=== PATIENT | female | born 1985 | race Caucasian/White ===

== ENCOUNTER 2018-02-02 09:10 | Emergency (ER) | payer BC, OTHER ==
[~2018-02-02] VITALS: Ht 157.5 cm; Wt 74.8 kg
[2018-02-02 09:21] VITALS: BP 145/100
[2018-02-02] MEDS ORDERED: ELIQUIS2.5 MG PO (09:23)
[2018-02-02] MEDS ORDERED: ZPAK PO (09:45)
[2018-02-02] MEDS ORDERED: PREDNISONE 20 M20 M1 PO (09:45)
== END 2018-02-02 09:49 | disposition home or self-care (01) ==
LOC: M.ERS 09:10
DX: J06.9 Acute upper respiratory infection, unspecified (principal); G43.909 Migraine, unspecified, not intractable, without status migrainosus; F17.210 Nicotine dependence, cigarettes, uncomplicated

== ENCOUNTER 2018-08-17 18:51 | Emergency (ER) | payer OTHER ==
[~2018-08-17] VITALS: Ht 157.5 cm; Wt 86.2 kg
[~2018-08-17 18:51] MED LIST: ELIQUIS2.5 MG PO; PREDNISONE 20 M20 M1 PO; ZPAK PO
[2018-08-17] MEDS ORDERED: NORCO 5-325 TA1 EACH PO (19:26)
[2018-08-17] MEDS ORDERED: ZOFRAN ODT4 MG PO (19:32)
[2018-08-17 19:39] VITALS: BP 131/85
== END 2018-08-17 19:39 | disposition home or self-care (01) ==
LOC: M.ERS 18:51
DX: S63.501A Unspecified sprain of right wrist, initial encounter (principal); G43.909 Migraine, unspecified, not intractable, without status migrainosus; F17.200 Nicotine dependence, unspecified, uncomplicated; W17.89XA Other fall from one level to another, initial encounter; Y93.02 Activity, running; Y92.89 Other specified places as the place of occurrence of the external cause; Y99.8 Other external cause status

== ENCOUNTER 2020-01-17 12:02 | Emergency (ER) | payer OTHER ==
[~2020-01-17] VITALS: Ht 157.5 cm; Wt 75.8 kg
[~2020-01-17 12:02] MED LIST changes: +NORCO 5-325 TA1 EACH PO; +ZOFRAN ODT4 MG PO
[2020-01-17] MEDS ORDERED: TRAMADOL 50 MG50 MG PO (12:19)
[2020-01-17 12:32] LABS: URINE BILIRUBIN NEGATIVE (Negative); URINE BLOOD NEGATIVE (Negative); URINE CLARITY CLEAR; URINE COLOR YELLOW; URINE GLUCOSE-RANDOM NEGATIVE (Negative); URINE KETONES NEGATIVE (Negative); URINE LEUKOCYTES-REFLEX NEGATIVE (Negative); URINE NITRITE-REFLEX NEGATIVE (Negative); URINE PROTEIN NEGATIVE (Negative); URINE UROBILINOGEN 0.2 E.U./dl (0.2-1.0)
[2020-01-17 12:44] LABS: AMP/METHAMP Negative (Negative); BARBITURATES Negative (Negative); BENZODIAZEPINES Negative (Negative); COCAINE POSITIVE (Negative); METHADONE Negative (Negative); OPIATES Negative (Negative); PCP Negative (Negative); THC POSITIVE (Negative)
[2020-01-17 12:47] LABS: ABSOLUTE BASOPHILS 0.1 thou/uL (0.0-0.2); ABSOLUTE LYMPHOCYTES 1.9 thou/uL (0.8-5.3); ABSOLUTE MONOCYTES 0.4 thou/uL (0.0-1.2); ABSOLUTE NEUTROPHILS 6.5 thou/uL (1.6-8.1); BASOPHILS 0.9 %; EOSINOPHILS 0.4 %; HEMATOCRIT 43.6 % (37.0-47.0); LYMPHOCYTES 21.5 %; MCH 29.6 pg (26.0-34.0); MCHC 34.5 g/dL (28.0-37.0); MCV 85.8 fL (80.0-100.0); MONOCYTES 4.6 %; MPV 9.7 fl. (7.2-11.1); NUCLEATED RBCS 0 /100WBC; PLATELET COUNT* 235 thou/uL (150-400); POLYS 72.6 %; RBC 5.08 mil/uL (4.20-5.00); RDW-CV 13.1 % (10.5-14.5)
[2020-01-17 13:02] LABS: CALCIUM 8.8 mg/dL (8.5-10.1)
[2020-01-17 13:07] LABS: ALBUMIN 3.9 g/dL (3.4-5.0); TOTAL BILIRUBIN 0.5 mg/dL (<0.1-1.0); TOTAL PROTEIN 7.1 g/dL (6.4-8.2)
[2020-01-17] MEDS ORDERED: PHENERGAN 25 MG25 M1 PO (14:36)
[2020-01-17] MEDS ORDERED: PROMS25 WY RECTAL (14:36)
[2020-01-17] MEDS ORDERED: BENTYL 20 MG TA20 M1 PO (16:22)
[2020-01-17 16:52] VITALS: BP 159/94
--- NOTE | 2020-01-18 14:29 | EKG ---
[place] [address] ELECTROCARDIOGRAM REPORT Name: ENRICO CABA Room: [facility]#: [id number] Admission: 01/17/20 Attend Phys: Discharge: 01/17/20 Date of : 87 Date of Service: 01/17/20 1250 Report #: [id number] THIS REPORT FOR: //name// [facility] ED Test Date: 2020-01-17 Test Time: 12:50:11 Pat Name: ENRICO CABA Department: Room: Gender: Customer Care Consultant: TDS : 1985 Requested By: Amarilis Hsu Order Number: [id number] MD: Dileep Artis Measurements Intervals [place] Rate: 43 P: 72 CT: 142 QRS: 50 QRSD: 105 T: 38 QT: 473 QTc: 400 Interpretive Statements Sinus bradycardia No previous ECG available for comparison Electronically Signed On 01-18-2020 14:29:27 CDT by Dileep Artis [email or web address] <ELECTRONICALLY SIGNED> By: Dileep Artis MD, [facility] 01/18/20 1429 1250 49 Dileep Artis MD, FACC /EPI
== END 2020-01-17 16:53 | disposition home or self-care (01) ==
LOC: M.ERS 12:02
PROVIDERS: Nurse Practitioner Family
DX: R11.15 Cyclical vomiting syndrome unrelated to migraine (principal); G43.909 Migraine, unspecified, not intractable, without status migrainosus